=== PATIENT | female | born 1950 | race African-American/Black ===

== ENCOUNTER → 2018-01-27 | Outpatient (CLI) | payer OTHER ==
[2017-04-19 12:07] VITALS: BP 104/60
[~2018-01-27] MED LIST: ACET500T68 PO; AMLO10TA6 PO; CELE200C PO; CELE400C PO; DOCU-109 PO; FERR325T14 PO; FLUO40CA2 PO; FURO-68 PO; FURO40TA4 PO; HYDR-2145 PO; NAPR220T70 PO; OLME20TA17 PO; OXYC1TAB22 PO; OXYC30TA3 PO; PANT20TA2 PO; POTA20TA4 PO; PROAIR HFA8.5 GM IH; TRAM50TA PO; TRAZ-86 PO; VARE1TAB21 PO; WARF-31 PO
--- NOTE | 2018-01-27 17:31 | PAIN ---
DATE OF SERVICE: 01/27/2018 INITIAL CONSULTATION FOR PAIN CLINIC CHIEF COMPLAINT: Low back and left lower extremity pain. HISTORY OF PRESENT ILLNESS: The patient is a 67-year-old female who presents with history of pain for about 1 year in the low back and radiating to the left lower extremity, mostly in the posterior gluteus, posterior thigh, posterior calf muscles with some numbness and tingling in the toes. The patient reports it is not the result of any specific injury or accident that she is aware of. It came up gradually over time, it is becoming more constant now, a sharp stabbing pain in low back; tingling, numbness radiating to the left leg posteriorly as well as some anterior numbness on the left leg in the thigh. The patient reports it is waking her from sleep at night at least twice a night, does not affect her bowel or bladder control, but does affect her ability to walk significantly. She uses a cane, a walker or electric chair one she can get one at a store. The patient reports she has had physical therapy from July of this past year as well as exercises on her own and continues to do this with some improvement with both of these, but only very minimal. The patient reports she has tried tramadol, trazodone as well as [id number] Tylenol, which does help. The tramadol helps, but not for very long and the trazodone does not. The patient reports no side effects with any of those medications. The patient reports the pain is worse with walking, standing, changing positions, stooping or bending, especially on the left side and again sleeping is just disturbing her at night. The patient reports her disability rate from 0-10, 10 being the worst is an 8 with family and home responsibilities and social activity, 10 with recreation, 8 with self-care, 5 with sexual activity and 0 with life support activities. The patient did have an MRI scan of the lumbar spine, which shows anterolisthesis at L4 and L5, multiple facet hypertrophy and multiple bulging annulus neural foraminal encroachment L5-S1 with narrowing neural foramen and lateral recesses bilaterally at L4-L5, trace anterolisthesis L4 and L5, marked facet hypertrophy and circumferential bulging of the annulus with canal stenosis as well. PAST MEDICAL HISTORY: Significant for shortness of breath, hypertension, congestive heart failure, gastroesophageal reflux, cigarette smoking, arthritis, depression. PREVIOUS SURGERY: Include bilateral total knee arthroplasties, 2014 on the right, 2016 on the left; previous colon resection with colostomy in 1991 and hysterectomy in 2003. CURRENT MEDICATIONS: Include losartan, hydrochlorothiazide, Tylenol, trazodone, tramadol, fluoxetine and pantoprazole. ALLERGIES: The patient has no known drug allergies. FAMILY HISTORY: Significant for no major medical problems or conditions she is aware of, but her sister does have some spine issues she reports. SOCIAL HISTORY: Positive for cigarette smoking less than a pack a year for 10 years. Does not drink any alcohol. Does not use any illegal, illicit or recreational drugs. She is single and lives locally in [place], [place]. REVIEW OF SYSTEMS: The patient's review of systems is positive for those items mentioned in history of present illness. All systems reviewed and otherwise negative. It is complete, full and well documented on the patient's chart. PHYSICAL EXAMINATION: VITAL SIGNS: The patient blood pressure is 172/113, pulse 96, respirations 18, temperature is 99.0 degrees Fahrenheit, height is 5 feet 6 inches, weight is 316 pounds. GENERAL: The patient is awake, alert, oriented, appropriate, very pleasant demeanor. HEENT: Head is normocephalic, atraumatic. Extraocular movements are intact and symmetrical. Oral cavity: Mucous membranes moist and pink. Dentition is intact. NECK: Shows anterior throat supple without palpable lymphadenopathy noted. Swallow reflex symmetrical. CHEST: Shows normal on inspection. Breath sounds clear to auscultation bilaterally. HEART: Shows S1, S2 clear. No murmurs auscultated. ABDOMEN: Soft, nontender, nondistended. No palpable organomegaly is noted. No rebound or guarding demonstrated. BACK: Shows spine grossly in the midline. Normal-appearing thoracic kyphosis and some slight flattening of lumbar lordotic curvature. Lumbar paraspinous muscle shows symmetrical on inspection. On palpation, it shows some moderate tenderness diffusely throughout the upper and lower distribution of paraspinous muscles, but only diffusely without significant radiation. The patient's spine shows no tenderness with the spinous processes, palpation of the sacrum or sacroiliac regions. The patient has good rotational motion of lumbar spine, both laterally as well as extension and flexion without significant pain reported. EXTREMITIES: Lower extremities show deep tendon reflexes at 1+ in the patellar and tendo calcaneus tendons are equal. Motor exam is approximately 4 on a scale of 5 on the left and 5/5 on the right with dorsiflexion, extension, quadriceps and hamstring flexion, 4/5 left, 5/5 right as well. The patient's lower extremities are equal in color and appearance. Warm and dry to touch. Peripheral pulses are 1+ posterior tibial. No peripheral edema is noted. No clubbing or cyanosis. The patient's straight leg raise is noted to be positive mildly on the left at approximately 40 degrees with decreased pain with knee flexion. Right side is negative. Gaenslen's and Lyle's maneuvers are negative bilaterally as well. The patient is able to stand, stand on her toes without significant difficulty or loss of balance, walks with a slight shuffling gait, does appear to favor the left lower extremity slightly. Not using any assistive devices on her visit today. SKIN: Warm and dry, good turgor. No edema. No sores, rashes or bruising. IMPRESSION: This is a 67-year-old female with: 1. Approximately 1-year history of increasing pain, low back, left lower extremity in a radicular fashion following an L5-S1 dermatomal distribution. 2. MRI scan of lumbar spine as noted. 3. Hypertension. 4. Arthritis. 5. Gastroesophageal reflux. 6. Obesity. 7. Cigarette smoking. PLAN: Options were discussed with the patient including conservative medical management, physical therapy, interventional techniques. She would like to pursue interventional techniques. We discussed a lumbar epidural steroid injection using description as well as anatomical models to describe the procedure. The patient will wait for preauthorization with her insurance provider and would like to proceed. The patient will continue to do her exercises as she has been doing in the meantime, stretching and strengthening as well and once preauthorization has been obtained, we will have her return for lumbar epidural steroid injection at that time. Also I gave Medrol Dosepak in the meantime. The patient was given instructions as well as side effects to be aware of with medication and will follow up as scheduled. HARINDER BOBBY MD DR: ANN/shayy JOB#: [id number] / [id number]
== END | disposition home or self-care (01) ==
LOC: PNCL 10:36
PROVIDERS: ATTEND Anesthesiology
DX: M79.605 Pain in left leg (principal); M54.5 Low back pain; K21.9 Gastro-esophageal reflux disease without esophagitis; I11.0 Hypertensive heart disease with heart failure; I50.9 Heart failure, unspecified; M19.90 Unspecified osteoarthritis, unspecified site; E66.9 Obesity, unspecified; Z87.891 Personal history of nicotine dependence; Z90.710 Acquired absence of both cervix and uterus
CPT/HCPCS: G0463

== ENCOUNTER → 2018-02-26 | Outpatient (CLI) | payer OTHER ==
[2017-04-19 12:07] VITALS: BP 104/60
[~2018-02-26] MED LIST changes: +ALBU2.5V8 IH; +IOHEXOL 180 MG/ML 10 ML VIAL. ONE; -PROAIR HFA8.5 GM IH; +methylPREDNISolone ACETATE 40 MG/ML VIAL. ONE; +methylPREDNISolone ACETATE 80 MG/ML VIAL. ONE
--- NOTE | 2018-02-26 14:28 | PAIN ---
DATE OF SERVICE: 02/26/2018 PROGRESS NOTE FOR PAIN CLINIC DIAGNOSES: Lumbar radiculopathy with lumbar degenerative disk disease. HISTORY OF PRESENT ILLNESS: The patient is a 67-year-old female who returns for followup status post initial evaluation and preauthorization for lumbar epidural steroid injection. The patient has obtained that now and likes to proceed. She reports pain in the low back, left lower extremity, posterior gluteus, posterior thigh, posterior calf, essentially unchanged. The patient reported it as 9 on a scale of 10 at its worst and average and 8 at its least and is an 8 today. The patient reports it is aching, shooting, stabbing, constant, radiating, worse with walking, standing, changing positions, better with sitting or lying down. It does awakening her from sleep occasionally, not every night. The patient reports no new motor or sensory deficits, no new bowel or bladder incontinence or other complaints. PHYSICAL EXAMINATION: VITAL SIGNS: The patient's blood pressure 175/101, pulse 101, respirations 18, temperature 98.7 degrees Fahrenheit. Height is 5 feet 6 inches, weight is 328 pounds. GENERAL: The patient is awake, alert, oriented, appropriate and very pleasant demeanor. HEENT: Head shows normocephalic, atraumatic. Extraocular movements are intact and symmetrical. Oral cavity: Mucous membranes moist and pink. Dentition is intact. NECK: Shows anterior throat supple without palpable lymphadenopathy noted. Swallow reflex symmetrical. CHEST: Shows normal on inspection. Breath sounds are clear to auscultation bilaterally. HEART: Shows S1, S2 clear. No murmurs auscultated. ABDOMEN: Soft, nontender, nondistended. No palpable organomegaly is noted. No rebound or guarding demonstrated. BACK: Shows spine grossly in the midline. Normal appearing thoracic kyphosis and minor flattening of lumbar lordotic curvature. Lumbar paraspinous muscle shows symmetrical on inspection and on palpation shows some moderate tenderness diffusely bilaterally, but only diffusely without radiation. EXTREMITIES: The patient's lower extremities show deep tendon reflexes at 1+ in the patellar and tendo-calcaneus tendons. Motor exam is strong with 5/5 dorsiflexion, extension on the right and 4/5 on the left. The patient's peripheral pulses are 1+ posterior tibia. No peripheral edema is noted bilaterally. PLAN: Options were discussed with the patient. The patient's old chart was reviewed as well as her current medication regimen updated. Current review of systems updated today as well. We will proceed with a first in this series of lumbar epidural steroid injection today with fluoroscopic guidance. Risks were again discussed including, but not limited to bleeding, infection, possibility of epidural hematoma, subsequent neurological compromise, dural puncture, headaches, spinal cord and/or nerve damage, side effects of steroid medication and poor results regarding pain control. The patient understands and wished to proceed. The patient to return to clinic in approximately 2 weeks for followup, was counseled on return appointment, activity level and side effects to be aware of. DIAGNOSES: Lumbar radiculopathy with lumbar degenerative disk disease. PROCEDURE: Lumbar epidural steroid injection, translaminar approach L5-S1 level using C-arm fluoroscopic guidance under sterile prep and drape using local anesthetic. MEDICATION INJECTED: A total of 120 mg Depo-Medrol plus 10 mL of preservative-free normal saline and 2 mL of Isovue for contrast. CONDITION AT DISCHARGE: Stable. The patient tolerated procedure well, had no complications. HARINDER BOBBY MD DR: ANN/shayy JOB#: [id number] / [id number]
== END | disposition home or self-care (01) ==
LOC: PNCL 09:36
PROVIDERS: ATTEND Anesthesiology
DX: M51.16 Intervertebral disc disorders with radiculopathy, lumbar region (principal); Z79.899 Other long term (current) drug therapy
CPT/HCPCS: 62323; J1030; J1040; Q9965

== ENCOUNTER → 2018-03-12 | Outpatient (CLI) | payer OTHER ==
[2017-04-19 12:07] VITALS: BP 104/60
--- NOTE | 2018-03-12 11:55 | PAIN ---
DATE OF SERVICE: 03/12/2018 PROGRESS NOTE FOR PAIN CLINIC DIAGNOSIS: Lumbar radiculopathy with lumbar degenerative disk disease. HISTORY OF PRESENT ILLNESS: The patient is a 67-year-old female who returns for followup status post lumbar epidural steroid injection x 1. The patient reports about 50% improvement after the injection, still with some pain in the low back and left lower extremity, posterior gluteus, posterior thigh, posterior calf. The patient reports it is worse with walking, standing, changing positions but much better. She was increasing her activity, walking and doing household activities with greater ease and comfort and traveling with greater comfort for the first few weeks after the injection. The patient reports the pain is returning now fairly significantly in the low back and left leg as described. Described as sharp, dull, shooting, stabbing and becoming more constant, more noticeable, awakens her from sleep very infrequently however. The patient reports it is better with sitting or lying down. The patient rates her pain as a 9 on a scale of 10 at its worst, 8 on average, 8 at its least and is an 8 today. The patient reports no new motor or sensory deficits and no new bowel or bladder incontinence or other complaints. PHYSICAL EXAMINATION: VITAL SIGNS: The patient's blood pressure 158/98, pulse 71, respirations are 18 and temperature 98.9 degrees Fahrenheit. Weight is 329 pounds. GENERAL: The patient is awake, alert, oriented, appropriate and very pleasant demeanor. HEENT: Head shows normocephalic and atraumatic. Extraocular movements are intact and symmetrical. Oral cavity: Mucous membranes moist and pink. Dentition is intact. NECK: Shows anterior throat supple without palpable lymphadenopathy noted. Swallow reflex symmetrical. CHEST: Shows normal on inspection. Breath sounds clear to auscultation bilaterally. HEART: Shows S1 and S2 clear. No murmurs are auscultated. ABDOMEN: Soft, nontender and nondistended. No palpable organomegaly is noted. No rebound or guarding demonstrated. BACK: Shows spine grossly in the midline. Normal-appearing thoracic kyphosis and lumbar lordotic curvature. Lumbar paraspinous muscle shows symmetrical on inspection, on palpation shows some moderate tenderness, but only diffusely in the low lumbar distribution bilaterally without significant radiation. The patient has good rotational motion of the lumbar spine, both laterally as well as extension and flexion without difficulty. EXTREMITIES: The patient's lower extremities show deep tendon reflexes at 1+ in the patellar and tendo-calcaneus tendons are equal. Motor exam is approximately 4 on a scale of 5 on the left and 5/5 on the right with dorsiflexion and extension. Peripheral pulses are 1+ posterior tibia. No peripheral edema is noted bilaterally. Options were discussed with the patient. The patient's old chart was reviewed as well as her current medication regimen updated. Current review of systems updated today as well. We will proceed with the second in a series of lumbar epidural steroid injection today with fluoroscopic guidance. Risks were again discussed including, but not limited to bleeding, infection, possibility of epidural hematoma, subsequent neurological compromise, dural puncture, headaches, spinal cord and/or nerve damage, side effects of steroid medication and poor judgment pain control. The patient understands and wished to proceed. The patient will return to the clinic in approximately 2 weeks for followup, was counseled as to return appointment, activity level and side effects to be aware of. DIAGNOSIS: Lumbar radiculopathy with lumbar degenerative disk disease. PROCEDURES: Lumbar epidural steroid injection, translaminar approach, L5-S1 level using C-arm fluoroscopic guidance under sterile prep and drape using local anesthetic. MEDICATION INJECTED: A total of 120 mg Depo-Medrol plus 10 mL of preservative-free normal saline and 2 mL of Isovue for contrast. CONDITION AT DISCHARGE: Stable. The patient tolerated procedure well and had no complications. HARINDER BOBBY MD DR: ANN/shayy JOB#: [id number] / [id number]
== END | disposition home or self-care (01) ==
LOC: PNCL 09:32
PROVIDERS: ATTEND Anesthesiology
DX: M51.16 Intervertebral disc disorders with radiculopathy, lumbar region (principal); M79.662 Pain in left lower leg; Z98.890 Other specified postprocedural states
CPT/HCPCS: 62323; J1030; J1040; Q9965

== ENCOUNTER → 2018-03-30 | Outpatient (CLI) | payer OTHER ==
[2017-04-19 12:07] VITALS: BP 104/60
[~2018-03-30] MED LIST changes: -AMLO10TA6 PO; +AMLO10TA8 PO; -IOHEXOL 180 MG/ML 10 ML VIAL. ONE; -methylPREDNISolone ACETATE 40 MG/ML VIAL. ONE; -methylPREDNISolone ACETATE 80 MG/ML VIAL. ONE
--- NOTE | 2018-03-30 13:23 | PAIN ---
DATE OF SERVICE: 03/30/2018 DIAGNOSIS: Lumbar radiculopathy with lumbar degenerative disk disease. HISTORY OF PRESENT ILLNESS: The patient is a 67-year-old female who returns for followup status post lumbar epidural steroid injection x 2. The patient reports only about 50% improvement for the first day or two and again pain returned basically to its baseline in the low back with some radiation to the left lower extremity. The patient reports tingling, cramping, aching, sharp, becoming more constant, worse with activity, standing, walking, better with sitting or lying down, but does awaken her from sleep about every 2-4 hours. The patient has to reposition and get back to sleep. The patient reports she was increasing her distance walking and activities at home for the first day or two but after that the pain came right back. The patient reports no new motor or sensory deficits. Reports her pain is 8 on a scale of 10 at its worst and average, 7 at its least and is an 8 today. No new bowel or bladder incontinence. PHYSICAL EXAMINATION: VITAL SIGNS: The patient's blood pressure is 206/83, pulse 91, respirations are 18, temperature 99.6 degrees Fahrenheit, height is 5 feet 6 inches, weight is 333 pounds. GENERAL: The patient is awake, alert, oriented, appropriate, very pleasant demeanor. HEENT: Head normocephalic, atraumatic. Extraocular muscles are intact and symmetrical. Oral cavity: Mucous membranes moist and pink. Dentition is intact. NECK: Shows anterior throat supple without palpable lymphadenopathy noted. Swallow reflex symmetrical. CHEST: Shows normal on inspection. Breath sounds clear to auscultation bilaterally. HEART: Shows S1, S2 clear. No murmurs auscultated. ABDOMEN: Soft, nontender, nondistended. No palpable organomegaly is noted. No rebound or guarding demonstrated. BACK: The patient's back shows spine grossly in the midline, slight exaggerated thoracic kyphosis, mild flattening of lumbar lordotic curvature. Lumbar paraspinous muscle shows symmetrical on inspection. With palpation shows some minor tenderness, but only diffusely with palpation in the middle and lower distribution of paraspinous muscles without radiation, without trigger points. EXTREMITIES: The patient's lower extremities show deep tendon reflexes 1+ in the patellar and tendo-calcaneus tendons. Motor exam is approximately 4 on a scale of 5 on left with dorsiflexion and extension, 5/5 on the right. Peripheral pulses are 1+ posterior tibia. No peripheral edema is noted bilaterally. Options were discussed with the patient. The patient's old chart was reviewed as her current medication regimen updated. Current review of systems updated today as well. We will hold on any further injections by her choice. The patient will return to physical therapy. We had reordered some therapy for her today as well as she did feel this was somewhat beneficial and would like to try this again. We discussed some water therapy as well. The patient would like to hold on this and wait until the regular physical therapy is completed to see if she may be interested in this as well. The patient will follow up at this time on as-needed basis. We will make arrangements for physical therapy to begin once again and the patient will follow up once this is completed. HARINDER BOBBY MD DR: ANN/shayy JOB#: [id number] / [id number]
== END | disposition home or self-care (01) ==
LOC: PNCL 11:35
PROVIDERS: ATTEND Anesthesiology
DX: M51.16 Intervertebral disc disorders with radiculopathy, lumbar region (principal)
CPT/HCPCS: G0463

== ENCOUNTER 2018-10-25 14:32 | Inpatient (IN) | payer OTHER, MEDICAID ==
[~2018-10-25] VITALS: Ht 167.6 cm; Wt 155.8 kg
[2018-10-25] MEDS ORDERED: ALBUTEROL SULFATE 2.5 MG/3 ML NEBU. NEB ONE (14:45)
[2018-10-25] MEDS ORDERED: ASPIRIN 325 MG TABLET PO ONE (14:45)
--- NOTE | 2018-10-25 14:57 | PHYS DOC ---
Past Medical History Past Medical History: CHF, Constipation, Depression, GERD, Hypertension Additional Past Medical Histor: BOWEL OBSTRUCTION, COLOSTOMY, OBESITY, chronic knee pain Past Surgical History: Cholecystectomy, Hysterectomy, Knee Replacement, Other Additional Past Surgical Histo: bowel resection, right knee, Alcohol Use: None Drug Use: None Adult General Chief Complaint Chief Complaint: SHORTNESS OF BREATH HPI HPI Patient is a 67 year old female who presents with shortness of breath or last week. Patient states over the weekend has gotten worse. Patient states that she was having upper mid back pain and she took a baclofen of which stopped the back pain. Patient states the shortness of air has continued. Patient denies any chest pain or any pain at this time. Patient states that she is just very short of breath and nothing makes it better or worse. Patient states she is a smoker never been diagnosed as COPD or asthma. Review of Systems Review of Systems Constitutional: Denies fever or chills [] Eyes: Denies change in visual acuity, redness, or eye pain [] HENT: Denies nasal congestion or sore throat [] Respiratory: Denies cough. shortness of breath [] Cardiovascular:Denies GI: Denies abdominal pain, nausea, vomiting, bloody stools or diarrhea [] Musculoskeletal: Denies back pain or joint pain [] Integument: Denies rash or skin lesions [] Neurologic: Denies headache, focal weakness or sensory changes [] All other systems were reviewed and found to be within normal limits, except as documented in this note. Current Medications Current Medications Current Medications Medications (Trade) Dose Ordered Sig/Enzo Start Time Stop Time Status Last Admin Dose Admin Albuterol Sulfate (Ventolin Neb Soln) 2.5 mg 1X ONCE 10/25/18 14:45 10/25/18 14:48 DC 10/25/18 15:06 2.5 MG Aspirin (Rosita Aspirin) 325 mg 1X ONCE 10/25/18 14:45 10/25/18 14:48 DC 10/25/18 15:33 325 MG Allergies Allergies Allergies Coded Allergies Type Severity Reaction Last Updated Verified No Known Drug Allergies 06/17/13 No Physical Exam Physical Exam Constitutional: Well developed, well nourished, no acute distress, non-toxic appearance. [] Eyes: PERRLA, EOMI, conjunctiva normal, no discharge. [] Neck: Normal range of motion, no tenderness, supple, no stridor. [] Cardiovascular:Heart rate regular rhythm, no murmur [] Lungs & Thorax: Bilateral upper breath sounds clear to auscultation but lower are diminished[] Skin: Warm, dry, no erythema, no rash. [] Back: No tenderness, no CVA tenderness. [] Extremities: No tenderness, no cyanosis, no clubbing, ROM intact, Bilateral lower extremities 1+ edema. [] Neurologic: Alert and oriented X 3, normal motor function, normal sensory function, no focal deficits noted. [] Psychologic: Affect normal, judgement normal, mood normal. [] Current Patient Data Vital Signs Vital Signs Date Time Temp Pulse Resp B/P (MAP) Pulse Ox O2 Delivery O2 Flow Rate FiO2 10/25/18 15:08 96 Nasal Cannula 4.0 10/25/18 14:46 98.0 89 24 167/98 (121) 98.0 Lab Values Laboratory Tests Test 10/25/18 15:05 White Blood Count 5.7 x10^3/uL (4.0-11.0) Red Blood Count 4.12 x10^6/uL (3.50-5.40) Hemoglobin 8.6 g/dL (12.0-15.5) L Hematocrit 27.8 % (36.0-47.0) L Mean Corpuscular Volume 67 fL (79-100) L Mean Corpuscular Hemoglobin 21 pg (25-35) L Mean Corpuscular Hemoglobin Concent 31 g/dL (31-37) Red Cell Distribution Width 21.4 % (11.5-14.5) H Platelet Count 282 x10^3/uL (140-400) Neutrophils (%) (Auto) 71 % (31-73) Lymphocytes (%) (Auto) 14 % (24-48) L Monocytes (%) (Auto) 10 % (0-9) H Eosinophils (%) (Auto) 4 % (0-3) H Basophils (%) (Auto) 1 % (0-3) Neutrophils # (Auto) 4.1 x10^3/uL (1.8-7.7) Lymphocytes # (Auto) 0.8 x10^3/uL (1.0-4.8) L Monocytes # (Auto) 0.6 x10^3/uL (0.0-1.1) Eosinophils # (Auto) 0.2 x10^3/uL (0.0-0.7) Basophils # (Auto) 0.1 x10^3/uL (0.0-0.2) Platelet Estimate Adequate (ADEQUATE) Polychromasia Occasional Hypochromasia Marked Anisocytosis Mod Microcytosis Marked Macrocytosis Slight Sodium Level 142 mmol/L (136-145) Potassium Level 3.9 mmol/L (3.5-5.1) Chloride Level 106 mmol/L (98-107) Carbon Dioxide Level 29 mmol/L (21-32) Anion Gap 7 (6-14) Blood Urea Nitrogen 13 mg/dL (7-20) Creatinine 0.7 mg/dL (0.6-1.0) Estimated GFR (Cockcroft-Gault) 101.6 BUN/Creatinine Ratio 19 (6-20) Glucose Level 97 mg/dL (70-99) Calcium Level 9.2 mg/dL (8.5-10.1) Total Bilirubin 0.4 mg/dL (0.2-1.0) Aspartate Amino Transferase (AST) 29 U/L (15-37) Alanine Aminotransferase (ALT) 20 U/L (14-59) Alkaline Phosphatase 102 U/L (46-116) Troponin I Quantitative < 0.017 ng/mL (0.000-0.055) DG-Rep-N-Type Natriuretic Peptide 1000 pg/mL (0-124) H Total Protein 7.7 g/dL (6.4-8.2) Albumin 3.6 g/dL (3.4-5.0) Albumin/Globulin Ratio 0.9 (1.0-1.7) L Laboratory Tests 10/25/18 15:05 Laboratory Tests 10/25/18 15:05 EKG EKG Sinus Rhythm and no STEMI[] Interpretation Time: [address] Luke Radiology/Procedures Radiology/Procedures [] Impressions: [facility] [address] [place] [address] IMAGING REPORT Signed PATIENT: FARIDEH OVERTON ACCOUNT: [id number] : 1950 LOCATION: ER AGE: 67 SEX: F EXAM STATUS: REG ER ORD. PHYSICIAN: MARAH RODRIGUEZ APRN REASON: soa PROCEDURE: CHEST PA & LATERAL PA and lateral chest x-ray without comparison for shortness of air. FINDINGS: Heart size is enlarged. Central vascularity is increased. On the right, this appears to be augmented with mid and lower lung infiltrates which could reflect asymmetric pulmonary edema or infection. No definite pleural effusions. IMPRESSION: 1. Cardiomegaly and central vascular congestion concerning for congestive heart failure. 2. Asymmetric airspace infiltrates right greater than left. This may reflect asymmetrical alveolar edema however superimposed infectious infiltrates are also suspected. Electronically signed by: Atul Augustine MD (10/25/2018 3:45 PM) [facility] DICTATED and SIGNED BY: ATUL AUGUSTINE MD DATE: 10/25/18 1545 Course & Med Decision Making Course & Med Decision Making Patient is a 67 year old female who presents with shortness of breath or last week. Patient states over the weekend has gotten worse. Patient states that she was having upper mid back pain and she took a baclofen of which stopped the back pain. Patient states the shortness of air has continued. Patient denies any chest pain or any pain at this time. Patient states that she is just very short of breath and nothing makes it better or worse. Patient states she is a smoker never been diagnosed as COPD or asthma. Alert and oriented. Ambulatory with steady gait. Speaks in full clear sentences. Lungs are clear to upper lobes but diminished in lower lobes. Patient denies chest pain, nausea, vomiting, abdominal pain, fever, cough, recent illness, dizziness, syncope, headache, visual changes, numbness or tingling. Patient has 1+ lower extremity edema. Skin pink warm and dry. PERRLA. Patient has a history of CHF, hypertension, GERD, depression, colostomy, bowel obstruction. Patient does not wear oxygen normally and was 85% on room air. Patient is 93% on 3L. No calf pain with palpation. No pain with breathing. Chest xray shows 1. Cardiomegaly and central vascular congestion concerning for congestive heart failure. 2. Asymmetric airspace infiltrates right greater than left. This may reflect asymmetrical alveolar edema however superimposed infectious infiltrates are also suspected. I've spoken to Dr. maynard about the patient and the Patient is admitted by hospitalist for CHF exacerbation. Dragon Disclaimer Dragon Disclaimer This electronic medical record was generated, in whole or in part, using a voice recognition dictation system. The HEART Score for CP Pts HEART Score for Chest Pain: HEART Score for Chest Pain Response (Comments) Value History Moderately Suspicious 1 ECG Normal 0 Age > 65 2 Risk Factors >3 Risk Factors or Hx CAD 2 Troponin < Normal Limit 0 Total 5 Risk Factors: Risk Factors: DM, Current or recent (<one month) smoker, HTN, HLP, family history of CAD, obesity. Risk Scores: Score 0 - 3: 2.5% MACE over next 6 weeks - Discharge Home Score 4 - 6: 20.3% MACE over next 6 weeks - Admit for Clinical Observation Score 7 - 10: 72.7% MACE over next 6 weeks - Early Invasive Strategies Departure Departure Impression: Primary Impression: CHF exacerbation Disposition: ADMITTED INPATIENT Admitting Physician: DAISY Condition: STABLE Referrals: LUTHER AGUILA (PCP) Problem Qualifiers Primary Impression: CHF exacerbation Heart failure type: unspecified Qualified Codes: I50.9 - Heart failure, unspecified MARAH RODRIGUEZ ATLASSIAN ADMINISTRATOR Oct 25, 2018 14:57
[2018-10-25 15:17] LABS: BASO # 0.1 x10^3/uL (0.0-0.2); BASO % 1 % (0-3); EOS # 0.2 x10^3/uL (0.0-0.7); EOS % 4 % (0-3); HEMATOCRIT 27.8 % (36.0-47.0); HEMOGLOBIN 8.6 g/dL (12.0-15.5); LYMPH # 0.8 x10^3/uL (1.0-4.8); LYMPH % 14 % (24-48); MEAN CORPUSCULAR HEMOGLOBIN 21 pg (25-35); MEAN CORPUSCULAR HGB CONC 31 g/dL (31-37); MEAN CORPUSCULAR VOLUME 67 fL (79-100); MONO # 0.6 x10^3/uL (0.0-1.1); MONO % 10 % (0-9); NEUT # 4.1 x10^3/uL (1.8-7.7); NEUT % 71 % (31-73); PLATELET COUNT 282 x10^3/uL (140-400); RED BLOOD COUNT 4.12 x10^6/uL (3.50-5.40); RED CELL DISTRIBUTION WIDTH 21.4 % (11.5-14.5); WHITE BLOOD COUNT 5.7 x10^3/uL (4.0-11.0)
[2018-10-25 15:30] LABS: CALCIUM 9.2 mg/dL (8.5-10.1); CREATININE 0.7 mg/dL (0.6-1.0); GFR 101.6; POTASSIUM 3.9 mmol/L (3.5-5.1)
[2018-10-25 15:33] LABS: ALBUMIN 3.6 g/dL (3.4-5.0); ALBUMIN/GLOBULIN RATIO 0.9 (1.0-1.7); TOTAL BILIRUBIN 0.4 mg/dL (0.2-1.0); TOTAL PROTEIN 7.7 g/dL (6.4-8.2)
[2018-10-25 15:36] LABS: ANISOCYTOSIS MOD; HYPOCHROMIA MARKED; MICROCYTOSIS MARKED; PLT ESTIMATE ADEQUATE (ADEQUATE); POLYCHROMASIA OCCASIONAL
--- NOTE | 2018-10-25 15:47 | RAD ---
PA and lateral chest x-ray without comparison for shortness of air. FINDINGS: Heart size is enlarged. Central vascularity is increased. On the right, this appears to be augmented with mid and lower lung infiltrates which could reflect asymmetric pulmonary edema or infection. No definite pleural effusions. IMPRESSION: 1. Cardiomegaly and central vascular congestion concerning for congestive heart failure. 2. Asymmetric airspace infiltrates right greater than left. This may reflect asymmetrical alveolar edema however superimposed infectious infiltrates are also suspected. Electronically signed by: Atul Toledo MD (10/25/2018 3:45 PM) [facility]
[2018-10-25] MEDS ORDERED: ACETAMINOPHEN 325 MG TABLET. PO PRN (16:15)
[2018-10-25] MEDS ORDERED: fentaNYL PF VIAL 100 MCG/2 ML VIAL IV PRN (16:15)
[2018-10-25] MEDS ORDERED: ONDANSETRON PF 4 MG/2 ML VIAL. IV PRN (16:15)
[2018-10-25] MEDS ORDERED: FUROSEMIDE 40 MG/4 ML VIAL. IVP ONE (17:00)
[2018-10-25 17:15] VITALS: BP 184/90
[2018-10-25] MEDS: FLUoxetine HCL 20 MG CAPSULE PO SCH (18:29)
[2018-10-25] MEDS: PANTOPRAZOLE 40 MG TABLET.DR. PO SCH (18:30)
[2018-10-25] MEDS ORDERED: FURO-69 PO (19:07)
[2018-10-25] MEDS ORDERED: BACL10TA PO (19:07)
[2018-10-25] MEDS ORDERED: GABA300C18 PO (19:07)
[2018-10-25] MEDS ORDERED: LOSA1TAB19 PO (19:07)
[2018-10-25 19:37] VITALS: BP 171/84
--- NOTE | 2018-10-25 20:00 | NUR ---
Pt in bed assessment completed vss poc explained,pt denies pain at this time will resume care and continue to monitor pt. Call light in reach.
[2018-10-25] MEDS: traZODone 50 MG TABLET. PO SCH (21:33)
[2018-10-25] MEDS: ACETAMINOPHEN 500 MG TABLET PO SCH (21:34)
--- NOTE | 2018-10-25 21:37 | PDOC1 ---
History and Physical Date of Admission Date of Admission DATE: 10/25/18 TIME: 21:30 Source Source: Chart review, Patient History of Present Illness History of Present Illness Ms. Ariza is a 67 year old female admit with worsening dyspnea for a week. 2 days she has not been able to sleep, snd she has been having upper mid back pain and she took a baclofen of which stopped the back pain. dyspnea at rest adn exertion, possible new LE edema. Patient denies any chest pain or any pain at this time. Patient states that she is just very short of breath and nothing makes it better or worse. Patient states she is a smoker never been diagnosed as COPD or asthma. Past Medical History Cardiovascular: CHF, HTN, Hyperlipidemia Pulmonary: COPD CENTRAL NERVOUS SYSTEM: Other GI: Other Heme/Onc: No pertinent hx Hepatobiliary: No pertinent hx Psych: No pertinent hx Musculoskeletal: Osteoarthritis, Other Rheumatologic: No pertinent hx Infectious disease: No pertinent hx Renal/: Urinary Incontinence Endocrine: No pertinent hx Past Surgical History Past Surgical History: Total knee replacement, Hysterectomy, Other Family History Family History: Hypertension Family History: Parent Social History Smoke: No ALCOHOL: none Drugs: None Current Problem List Problem List Problems Medical Problems: (1) CHF exacerbation Status: Acute Current Medications Current Medications Current Medications Aspirin (Rosita Aspirin) 325 mg 1X ONCE PO Last administered on 10/25/18at 15:33; Start 10/25/18 at 14:45; Stop 10/25/18 at 14:48; Status DC Albuterol Sulfate (Ventolin Neb Soln) 2.5 mg 1X ONCE NEB Last administered on 10/25/18at 15:06; Start 10/25/18 at 14:45; Stop 10/25/18 at 14:48; Status DC Ondansetron HCl (Zofran) 4 mg PRN Q8HRS PRN IV NAUSEA/VOMITING; Start 10/25/18 at 16:15; Stop 10/26/18 at 16:14 Fentanyl Citrate (Fentanyl 2ml Vial) 50 mcg PRN Q1HR PRN IV PAIN; Start 10/25/18 at 16:15; Stop 10/26/18 at 16:14 Acetaminophen (Tylenol) 650 mg PRN Q4HRS PRN PO FEVER; Start 10/25/18 at 16:15; Stop 10/26/18 at 16:14 Furosemide (Lasix) 40 mg 1X ONCE IVP Last administered on 10/25/18at 17:07; Start 10/25/18 at 17:00; Stop 10/25/18 at 17:01; Status DC Acetaminophen (Tylenol) 500 mg BID PO ; Start 10/25/18 at 21:00 Tramadol HCl (Ultram) 100 mg PRN Q6HRS PRN PO PAIN; Start 10/25/18 at 17:15 Trazodone HCl (Desyrel) 150 mg HS PO ; Start 10/25/18 at 21:00 Fluoxetine HCl (PROzac) 40 mg DAILY08 PO Last administered on 10/25/18at 18:31; Start 10/25/18 at 17:30 Pantoprazole Sodium (Protonix) 40 mg DAILYAC PO Last administered on 10/25/18at 18:31; Start 10/25/18 at 17:30 Active Scripts Active Reported Gabapentin 300 Mg Capsule 300 Mg PO HS Baclofen 10 Mg Tablet 1 Tab PO DAILY Lasix (Furosemide) 20 Mg Tablet 1 Tab PO DAILY Losartan-Hctz 50-12.5 Mg Tab (Losartan/Hydrochlorothiazide) 1 Each Tablet 1 Tab PO DAILY Acetaminophen 500 Mg Tablet 1 Tab PO BID Protonix (Pantoprazole Sodium) 20 Mg Tablet.dr 40 Mg PO DAILY Trazodone Hcl 100 Mg Tablet 150 Mg PO HS Fluoxetine Hcl 40 Mg Capsule 40 Mg PO DAILY08 Tramadol Hcl 50 Mg Tablet 100 Mg PO PRN Q6HRS Allergies Allergies: Coded Allergies: No Known Drug Allergies (Unverified , 06/17/13) ROS General: YES: Fatigue, Malaise PSYCHOLOGICAL ROS: YES: Sleep disturbances; No: Anxiety, Behavioral Disorder, Concentration difficultie, Decreased libido, Depression, Disorientation, Hallucinations, Hostility, Irritablity, Memory difficulties, Mood Swings, Obsessive thoughts, Physical abuse, Sexual abuse, Suicidal ideation, Other Eyes: No Blurry vision, No Decreased vision, No Double vision, No Dry eyes, No Excessive tearing, No Eye Pain, No Itchy Eyes, No Loss of vision, No Photophobia, No Scotomata, No Uses contacts, No Uses glasses, No Other Respiratory: YES: Shortness of breath, SOB with excertion, Tachypnea; No: Cough, Hemoptysis, Orthopnea, Sputum Changes, Stridor, Wheezing, Other Cardiovascular: yes Edema; No Chest Pain, No Palpitations, No Orthopnea, No Paroxysmal Noc. Dyspnea, No Lt Headedness, No Other Gastrointestinal: No Nausea, No Vomiting, No Abdominal Pain, No Diarrhea, No Constipation, No Melena, No Hematochezia, No Other Genitourinary: No Dysuria, No Frequency, No Incontinence, No Hematuria, No Retention, No Discharge, No Urgency, No Pain, No Flank Pain, No Other, No , No , No , No , No , No , No Musculoskeletal: Yes Joint Pain, Yes Joint Stiffness; No Gait Disturbance, No Joint Swelling, No Muscle Pain, No Muscular Weakness, No Pain In:, No Swelling In:, No Other Neurological: No Behavorial Changes, No Bowel/Bladder ControlChng, No Confusion, No Dizziness, No Gait Disturbance, No Headaches, No Impaired Coord/balance, No Memory Loss, No Numbness/Tingling, No Seizures, No Speech Problems, No Tremors, No Visual Changes, No Weakness, No Other Skin: No Dry Skin, No Eczema, No Hair Changes, No Lumps, No Mole Changes, No Mottling, No Nail Changes, No Pruritus, No Rash, No Skin Lesion Changes, No Other, No Acne Physical Exam General: Alert, Oriented X3, Cooperative, No acute distress, mild distress HEENT: Atraumatic, EOMI, Mucous membr. moist/pink Lungs: Clear to auscultation, Other (distant due to habitus) Heart: S1S2, irregularly irregular, other (distant due to size) Abdomen: Normal bowel sounds (very obese), Soft Extremities: No clubbing, Other (1+ edema) Skin: No rashes Neuro: Normal speech, Sensation intact Psych/Mental Status: Mental status NL Vitals Vitals Vital Signs Date Time Temp Pulse Resp B/P (MAP) Pulse Ox O2 Delivery O2 Flow Rate FiO2 10/25/18 19:37 97.8 73 18 171/84 (113) 95 Nasal Cannula 2.0 97.8 Labs Labs Laboratory Tests Test 10/25/18 15:00 10/25/18 15:05 10/25/18 19:20 Lactic Acid Level 0.9 mmol/L (0.4-2.0) White Blood Count 5.7 x10^3/uL (4.0-11.0) Red Blood Count 4.12 x10^6/uL (3.50-5.40) Hemoglobin 8.6 g/dL (12.0-15.5) Hematocrit 27.8 % (36.0-47.0) Mean Corpuscular Volume 67 fL (79-100) Mean Corpuscular Hemoglobin 21 pg (25-35) Mean Corpuscular Hemoglobin Concent 31 g/dL (31-37) Red Cell Distribution Width 21.4 % (11.5-14.5) Platelet Count 282 x10^3/uL (140-400) Neutrophils (%) (Auto) 71 % (31-73) Lymphocytes (%) (Auto) 14 % (24-48) Monocytes (%) (Auto) 10 % (0-9) Eosinophils (%) (Auto) 4 % (0-3) Basophils (%) (Auto) 1 % (0-3) Neutrophils # (Auto) 4.1 x10^3/uL (1.8-7.7) Lymphocytes # (Auto) 0.8 x10^3/uL (1.0-4.8) Monocytes # (Auto) 0.6 x10^3/uL (0.0-1.1) Eosinophils # (Auto) 0.2 x10^3/uL (0.0-0.7) Basophils # (Auto) 0.1 x10^3/uL (0.0-0.2) Platelet Estimate Adequate (ADEQUATE) Polychromasia Occasional Hypochromasia Marked Anisocytosis Mod Microcytosis Marked Macrocytosis Slight Sodium Level 142 mmol/L (136-145) Potassium Level 3.9 mmol/L (3.5-5.1) Chloride Level 106 mmol/L (98-107) Carbon Dioxide Level 29 mmol/L (21-32) Anion Gap 7 (6-14) Blood Urea Nitrogen 13 mg/dL (7-20) Creatinine 0.7 mg/dL (0.6-1.0) Estimated GFR (Cockcroft-Gault) 101.6 BUN/Creatinine Ratio 19 (6-20) Glucose Level 97 mg/dL (70-99) Calcium Level 9.2 mg/dL (8.5-10.1) Total Bilirubin 0.4 mg/dL (0.2-1.0) Aspartate Amino Transf (AST/SGOT) 29 U/L (15-37) Alanine Aminotransferase (ALT/SGPT) 20 U/L (14-59) Alkaline Phosphatase 102 U/L (46-116) Troponin I Quantitative < 0.017 ng/mL (0.000-0.055) < 0.017 ng/mL (0.000-0.055) VP-Dlc-G-Type Natriuretic Peptide 1000 pg/mL (0-124) Total Protein 7.7 g/dL (6.4-8.2) Albumin 3.6 g/dL (3.4-5.0) Albumin/Globulin Ratio 0.9 (1.0-1.7) Laboratory Tests Test 10/25/18 15:00 10/25/18 15:05 10/25/18 19:20 Lactic Acid Level 0.9 mmol/L (0.4-2.0) White Blood Count 5.7 x10^3/uL (4.0-11.0) Red Blood Count 4.12 x10^6/uL (3.50-5.40) Hemoglobin 8.6 g/dL (12.0-15.5) Hematocrit 27.8 % (36.0-47.0) Mean Corpuscular Volume 67 fL (79-100) Mean Corpuscular Hemoglobin 21 pg (25-35) Mean Corpuscular Hemoglobin Concent 31 g/dL (31-37) Red Cell Distribution Width 21.4 % (11.5-14.5) Platelet Count 282 x10^3/uL (140-400) Neutrophils (%) (Auto) 71 % (31-73) Lymphocytes (%) (Auto) 14 % (24-48) Monocytes (%) (Auto) 10 % (0-9) Eosinophils (%) (Auto) 4 % (0-3) Basophils (%) (Auto) 1 % (0-3) Neutrophils # (Auto) 4.1 x10^3/uL (1.8-7.7) Lymphocytes # (Auto) 0.8 x10^3/uL (1.0-4.8) Monocytes # (Auto) 0.6 x10^3/uL (0.0-1.1) Eosinophils # (Auto) 0.2 x10^3/uL (0.0-0.7) Basophils # (Auto) 0.1 x10^3/uL (0.0-0.2) Platelet Estimate Adequate (ADEQUATE) Polychromasia Occasional Hypochromasia Marked Anisocytosis Mod Microcytosis Marked Macrocytosis Slight Sodium Level 142 mmol/L (136-145) Potassium Level 3.9 mmol/L (3.5-5.1) Chloride Level 106 mmol/L (98-107) Carbon Dioxide Level 29 mmol/L (21-32) Anion Gap 7 (6-14) Blood Urea Nitrogen 13 mg/dL (7-20) Creatinine 0.7 mg/dL (0.6-1.0) Estimated GFR (Cockcroft-Gault) 101.6 BUN/Creatinine Ratio 19 (6-20) Glucose Level 97 mg/dL (70-99) Calcium Level 9.2 mg/dL (8.5-10.1) Total Bilirubin 0.4 mg/dL (0.2-1.0) Aspartate Amino Transf (AST/SGOT) 29 U/L (15-37) Alanine Aminotransferase (ALT/SGPT) 20 U/L (14-59) Alkaline Phosphatase 102 U/L (46-116) Troponin I Quantitative < 0.017 ng/mL (0.000-0.055) < 0.017 ng/mL (0.000-0.055) PB-Vae-V-Type Natriuretic Peptide 1000 pg/mL (0-124) Total Protein 7.7 g/dL (6.4-8.2) Albumin 3.6 g/dL (3.4-5.0) Albumin/Globulin Ratio 0.9 (1.0-1.7) VTE Prophylaxis Ordered VTE Prophylaxis Devices: No VTE Pharmacological Prophylaxi: Yes Assessment/Plan Assessment/Plan acute diastolic CHF exacerbation, IV lasix morbid obesity, BMI 47 poss secondary pulm htn depression, anxiety insomnia GERD anemia, poss iron def, check labs SHIREEN DIA MD Oct 25, 2018 21:37
[2018-10-25 22:21] VITALS: BP 130/68
[2018-10-25] MEDS: GABAPENTIN 300 MG CAPSULE. PO SCH (22:57)
[2018-10-26] VITALS (8 sets, daily range): BP systolic 130–198; BP diastolic 60–94
--- NOTE | 2018-10-26 05:31 | EKG ---
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
[2018-10-26] MEDS: PANTOPRAZOLE 40 MG TABLET.DR. PO SCH (06:22)
[2018-10-26 07:17] LABS: BASO % 1 % (0-3); EOS # 0.2 x10^3/uL (0.0-0.7); EOS % 6 % (0-3); HEMATOCRIT 27.8 % (36.0-47.0); HEMOGLOBIN 8.4 g/dL (12.0-15.5); LYMPH # 0.9 x10^3/uL (1.0-4.8); LYMPH % 22 % (24-48); MEAN CORPUSCULAR HEMOGLOBIN 20 pg (25-35); MEAN CORPUSCULAR HGB CONC 30 g/dL (31-37); MEAN CORPUSCULAR VOLUME 68 fL (79-100); MONO # 0.4 x10^3/uL (0.0-1.1); MONO % 10 % (0-9); NEUT # 2.5 x10^3/uL (1.8-7.7); NEUT % 61 % (31-73); RED BLOOD COUNT 4.09 x10^6/uL (3.50-5.40); RED CELL DISTRIBUTION WIDTH 21.1 % (11.5-14.5)
[2018-10-26 07:21] LABS: CALCIUM 8.9 mg/dL (8.5-10.1); CREATININE 0.8 mg/dL (0.6-1.0); GFR 87.1; POTASSIUM 4.1 mmol/L (3.5-5.1)
[2018-10-26 07:27] LABS: PLATELET COUNT 187 x10^3/uL (140-400)
[2018-10-26] MEDS: CYCLOBENZAPRINE 10 MG TABLET. PO SCH (07:46)
[2018-10-26] MEDS: FLUoxetine HCL 20 MG CAPSULE PO SCH (07:47)
[2018-10-26] MEDS: traMADol 50 MG TABLET PO PRN ×3 (07:51→20:28)
[2018-10-26 08:25] LABS: CHOLESTEROL/HDL RATIO 1.9
[2018-10-26] MEDS ORDERED: LOSARTAN POTASSIUM 50 MG TABLET. PO SCH (09:00)
[2018-10-26] MEDS ORDERED: hydroCHLOROthiazide 12.5 MG CAPSULE PO SCH (09:00)
[2018-10-26] MEDS ORDERED: FUROSEMIDE 20 MG TABLET PO SCH (09:00)
[2018-10-26] MEDS: ACETAMINOPHEN 500 MG TABLET PO SCH ×2 (09:00→20:28)
[2018-10-26] MEDS ORDERED: NON FORMULARY ITEM (Losartan/Hydrochlorothiazide (Losartan-Hctz 50-12.5 Mg Tab) 1 TAB) PO SCH (09:00)
--- NOTE | 2018-10-26 11:27 | CARD ---
MR#: [id number] Date of Study: 10/26/2018 Ordering Physician: SHIREEN DIA, Referring Physician: SHIREEN DIA Tech: Kirsten Kam RDCS APPROVED REPORT EXAM: Two-dimensional and M-mode echocardiogram with Doppler and color Doppler. Other Information Quality : Technically LimitedHR: 71bpm Rhythm : NSRTechnically limited study due to body habitus and smoking. INDICATION Congestive Heart Failure 2D DIMENSIONS RVDd3.4 (2.9-3.5cm)Left Atrium(2D)4.3 (1.6-4.0cm) IVSd1.8 (0.7-1.1cm)Aortic Root(2D)3.3 (2.0-3.7cm) LVDd5.3 (3.9-5.9cm)LVOT Diameter2.4 (1.8-2.4cm) PWd1.5 (0.7-1.1cm)LVDs3.9 (2.5-4.0cm) FS (%) 25.7 %SV67.7 ml LVEF(%)50.2 (>50%) M-Mode DIMENSIONS Left Atrium(MM)4.22 (2.5-4.0cm)Aortic Root3.51 (2.2-3.7cm) Aortic Valve AoV Peak Mj.119.8cm/sAoV VTI19.2cm AO Peak GR.5.7mmHgLVOT Peak Mj.86.5cm/s AO Mean GR.3mmHgAVA (VMAX)3.25cm2 OSWALD (VTI)3.00cm2 Mitral Valve MV E Fvnmrjco22.9cm/sMV DECEL [id number] MV A Ednmlofy05.8cm/sE/A Ratio0.8 Pulmonary Valve PV Peak Epnqorfa94.3cm/s Tricuspid Valve TR P. Naxuzreh304cz/sRAP [id number] TR Peak Gr.28obSoXZGQ93tzHp LEFT VENTRICLE The left ventricle is normal size. There is moderate concentric left ventricular hypertrophy. Left ve ntricle systolic function is normal. The Ejection Fraction is 55%. There is normal LV segmental wall motion. Transmitral Doppler flow pattern is Grade I-abnormal relaxation pattern. RIGHT VENTRICLE The right ventricle is normal size. There is normal right ventricular wall thickness. The right ventr icular systolic function is normal. ATRIA The left atrium is mildly dilated. The right atrium is mildly dilated. The interatrial septum is inta ct with no evidence for an atrial septal defect or patent foramen ovale as noted on 2-D or Doppler im aging. AORTIC VALVE The aortic valve is normal in structure and function. The aortic valve is trileaflet. Doppler and Col or Flow revealed no significant aortic regurgitation. There is no significant aortic valvular stenosi s. MITRAL VALVE The mitral valve is normal in structure and function. There is no evidence of mitral valve prolapse. There is no mitral valve stenosis. Doppler and Color-flow revealed trace mitral regurgitation. TRICUSPID VALVE The tricuspid valve is normal in structure and function. Doppler and Color Flow revealed trace tricus pid regurgitation. The PA pressure was estimated at 23 mmHg. There is no tricuspid valve prolapse or vegetation. There is no tricuspid valve stenosis. PULMONIC VALVE The pulmonic valve is not well visualized. GREAT VESSELS The aortic root is normal in size. The ascending aorta is normal in size. The IVC was not visualized. PERICARDIAL EFFUSION There is no evidence of significant pericardial effusion. Critical Notification Critical Value: No <Conclusion> Left ventricle systolic function is normal. The Ejection Fraction is 55%. There is normal LV segmental wall motion. Transmitral Doppler flow pattern is Grade I-abnormal relaxation pattern. Trace mitral regurgitation. Trace tricuspid regurgitation. The PA pressure was estimated at 23 mmHg. There is no evidence of significant pericardial effusion. Signed by : Srini Lowery, Electronically Approved : 10/26/2018 11:27:05
--- NOTE | 2018-10-26 11:44 | PDOC2 ---
CARDIAC CONSULT DATE OF CONSULT Date of Consult DATE: 10/26/18 TIME: 11:36 REASON FOR CONSULT Reason for Consult: CHF exacerbation REFERRING PHYSICIAN Referring Physician: Holly SOURCE Source: Chart review, Patient HISTORY OF PRESENT ILLNESS HISTORY OF PRESENT ILLNESS This is a 67 yo AA female who lives alone and has been having shortness of breath in the last 1.5 weeks. She has been having some producitve cough yell owish in color and her SOA has been progressive. she has been weaker. Denies any chest pain or palpitations. No reported fever or chills. No frequent dizziness. Positive for PND and orthopnea but no significant swelling by her comparison. Reports of wheezing as well. No hx of VTE, CAD or any arrhythmias. PAST MEDICAL HISTORY Past Medical History Cardiovascular: CHF, HTN, Hyperlipidemia, vasovagal syncope Pulmonary: COPD CENTRAL NERVOUS SYSTEM: Other GI: Other Heme/Onc: No pertinent hx Hepatobiliary: No pertinent hx Psych: No pertinent hx Musculoskeletal: Osteoarthritis, Other Rheumatologic: No pertinent hx Infectious disease: No pertinent hx Renal/: Urinary Incontinence Endocrine: No pertinent hx PAST SURGICAL HISTORY Past Surgical History Total knee replacement, Hysterectomy, bowel resection with colostomy FAMILY HISTORY Family History: Hypertension SOCIAL HISTORY Smoke: No ALCOHOL: none Drugs: None Lives: with Family CURRENT MEDICATIONS CURRENT MEDICATIONS Current Medications Medications (Trade) Dose Ordered Sig/Enzo Route PRN Reason Start Time Stop Time Status Last Admin Dose Admin Aspirin (Rosita Aspirin) 325 mg 1X ONCE PO 10/25/18 14:45 10/25/18 14:48 DC 10/25/18 15:33 Albuterol Sulfate (Ventolin Neb Soln) 2.5 mg 1X ONCE NEB 10/25/18 14:45 10/25/18 14:48 DC 10/25/18 15:06 Furosemide (Lasix) 40 mg 1X ONCE IVP 10/25/18 17:00 10/25/18 17:01 DC 10/25/18 17:07 Acetaminophen (Tylenol) 500 mg BID PO 10/25/18 21:00 10/25/18 21:34 Tramadol HCl (Ultram) 100 mg PRN Q6HRS PRN PO PAIN 10/25/18 17:15 10/26/18 07:51 Trazodone HCl (Desyrel) 150 mg HS PO 10/25/18 21:00 10/25/18 21:34 Fluoxetine HCl (PROzac) 40 mg DAILY08 PO 10/25/18 17:30 10/26/18 07:51 Pantoprazole Sodium (Protonix) 40 mg DAILYAC PO 10/25/18 17:30 10/26/18 06:22 Furosemide (Lasix) 20 mg DAILY PO 10/26/18 09:00 10/26/18 07:51 Gabapentin (Neurontin) 300 mg HS PO 10/25/18 22:15 10/25/18 22:57 Cyclobenzaprine HCl (Flexeril) 10 mg DAILY PO 10/26/18 09:00 10/26/18 07:51 Losartan Potassium (Cozaar) 50 mg DAILY PO 10/26/18 09:00 10/26/18 07:51 Hydrochlorothiazide (Microzide) 12.5 mg DAILY PO 10/26/18 09:00 10/26/18 07:51 ALLERGIES ALLERGIES: Coded Allergies: No Known Drug Allergies (Unverified , 06/17/13) ROS Review of System 14 point ROS evaluated with pertinent positives noted per HPI PHYSICAL EXAM General: Alert, Oriented X3, Cooperative, No acute distress HEENT: Atraumatic, Mucous membr. moist/pink Lungs: Other (diminished throughout) Heart: Regular rate (Sr), Other (distant heart sounds) Extremities: No cyanosis (E pitting edema) Neuro: Normal speech, Sensation intact Psych/Mental Status: Mood NL, Other (drowsy) MUSCULOSKELETAL: Osteoarthritic changes both hands VITALS/I&O VITALS/I&O: Vital Signs Date Time Temp Pulse Resp B/P (MAP) Pulse Ox O2 Delivery O2 Flow Rate FiO2 10/26/18 08:00 Nasal Cannula 2.0 10/26/18 07:51 72 166/106 10/26/18 07:00 98.2 20 91 98.2 I & O 10/25/18 10/25/18 10/26/18 15:00 23:00 07:00 Intake Total 200 ml 120 ml Output Total 600 ml 200 ml Balance -400 ml -80 ml LABS Lab: Laboratory Tests Test 10/25/18 15:00 10/25/18 15:05 10/25/18 19:20 10/26/18 06:00 Lactic Acid Level 0.9 mmol/L (0.4-2.0) White Blood Count 5.7 x10^3/uL (4.0-11.0) 4.0 x10^3/uL (4.0-11.0) Red Blood Count 4.12 x10^6/uL (3.50-5.40) 4.09 x10^6/uL (3.50-5.40) Hemoglobin 8.6 g/dL (12.0-15.5) L 8.4 g/dL (12.0-15.5) L Hematocrit 27.8 % (36.0-47.0) L 27.8 % (36.0-47.0) L Mean Corpuscular Volume 67 fL (79-100) L 68 fL (79-100) L Mean Corpuscular Hemoglobin 21 pg (25-35) L 20 pg (25-35) L Mean Corpuscular Hemoglobin Concent 31 g/dL (31-37) 30 g/dL (31-37) L Red Cell Distribution Width 21.4 % (11.5-14.5) H 21.1 % (11.5-14.5) H Platelet Count 282 x10^3/uL (140-400) 187 x10^3/uL (140-400) Neutrophils (%) (Auto) 71 % (31-73) 61 % (31-73) Lymphocytes (%) (Auto) 14 % (24-48) L 22 % (24-48) L Monocytes (%) (Auto) 10 % (0-9) H 10 % (0-9) H Eosinophils (%) (Auto) 4 % (0-3) H 6 % (0-3) H Basophils (%) (Auto) 1 % (0-3) 1 % (0-3) Neutrophils # (Auto) 4.1 x10^3/uL (1.8-7.7) 2.5 x10^3/uL (1.8-7.7) Lymphocytes # (Auto) 0.8 x10^3/uL (1.0-4.8) L 0.9 x10^3/uL (1.0-4.8) L Monocytes # (Auto) 0.6 x10^3/uL (0.0-1.1) 0.4 x10^3/uL (0.0-1.1) Eosinophils # (Auto) 0.2 x10^3/uL (0.0-0.7) 0.2 x10^3/uL (0.0-0.7) Basophils # (Auto) 0.1 x10^3/uL (0.0-0.2) 0.0 x10^3/uL (0.0-0.2) Platelet Estimate Adequate (ADEQUATE) Polychromasia Occasional Hypochromasia Marked Anisocytosis Mod Microcytosis Marked Macrocytosis Slight Sodium Level 142 mmol/L (136-145) 147 mmol/L (136-145) H Potassium Level 3.9 mmol/L (3.5-5.1) 4.1 mmol/L (3.5-5.1) Chloride Level 106 mmol/L (98-107) 109 mmol/L (98-107) H Carbon Dioxide Level 29 mmol/L (21-32) 32 mmol/L (21-32) Anion Gap 7 (6-14) 6 (6-14) Blood Urea Nitrogen 13 mg/dL (7-20) 12 mg/dL (7-20) Creatinine 0.7 mg/dL (0.6-1.0) 0.8 mg/dL (0.6-1.0) Estimated GFR (Cockcroft-Gault) 101.6 87.1 BUN/Creatinine Ratio 19 (6-20) Glucose Level 97 mg/dL (70-99) 99 mg/dL (70-99) Calcium Level 9.2 mg/dL (8.5-10.1) 8.9 mg/dL (8.5-10.1) Total Bilirubin 0.4 mg/dL (0.2-1.0) Aspartate Amino Transferase (AST) 29 U/L (15-37) Alanine Aminotransferase (ALT) 20 U/L (14-59) Alkaline Phosphatase 102 U/L (46-116) Troponin I Quantitative < 0.017 ng/mL (0.000-0.055) < 0.017 ng/mL (0.000-0.055) CD-Ion-N-Type Natriuretic Peptide 1000 pg/mL (0-124) H Total Protein 7.7 g/dL (6.4-8.2) Albumin 3.6 g/dL (3.4-5.0) Albumin/Globulin Ratio 0.9 (1.0-1.7) L Iron Level 22 ug/dL (50-170) L Total Iron Binding Capacity 361 ug/dL (250-450) Iron Saturation 6 % (15-34) L Triglycerides Level 33 mg/dL (0-150) Cholesterol Level 111 mg/dL (0-200) LDL Cholesterol, Calculated 45 mg/dL (0-100) VLDL Cholesterol, Calculated 7 mg/dL (0-40) Non-HDL Cholesterol Calculated 52 mg/dL (0-129) HDL Cholesterol 59 mg/dL (40-60) Cholesterol/HDL Ratio 1.9 Thyroid Stimulating Hormone (TSH) 0.408 uIU/mL (0.358-3.74) Laboratory Tests 10/25/18 15:05 10/26/18 06:00 Laboratory Tests 10/25/18 15:05 10/26/18 06:00 ECHOCARDIOGRAM ECHOCARDIOGRAM <Conclusion> Left ventricle systolic function is normal. The Ejection Fraction is 55%. There is normal LV segmental wall motion. Transmitral Doppler flow pattern is Grade I-abnormal relaxation pattern. Trace mitral regurgitation. Trace tricuspid regurgitation. The PA pressure was estimated at 23 mmHg. There is no evidence of significant pericardial effusion. DATE: 10/26/18914 ASSESSMENT/PLAN ASSESSMENT/PLAN 1. Acute on chronic diastolic CHF 2. Suspect AECOPD with continued tobaccoism 3. HTN urgency 4. Microcytic anemia: LEIDA. no known active bleed. defer to PCP 5. Mild coagulopathy 6. HLP Recommendations 1. Lasix therapy, albuterol. Continue with ARB. 2. Noncontrast CT chest, TTE, lipids and TSH 3. Smoking cessation 4. will need outpt JAY workup. CHASE CRAWFORD REGISTERED ROUTE ASSOCIATE Oct 26, 2018 11:44
[2018-10-26] MEDS ORDERED: ALBUTEROL SULFATE 2.5 MG/3 ML NEBU. NEB PRN (12:00)
[2018-10-26] MEDS ORDERED: FUROSEMIDE 40 MG/4 ML VIAL. IVP ONE (12:00)
--- NOTE | 2018-10-26 13:06 | NUR ---
SS following for discharge planning. SS reviewed pt chart. Pt is from home and is currently requiring oxygen. No discharge needs noted at this time. SS will continue to follow for discharge planning.
[2018-10-26 13:24] LABS: BASE EXCESS COOX 3 mmol/L (-3-3); HCO3 COOX 28 mmol/L (21-28); METHEMOGLOBIN 0.3 % (0.0-1.9); OXYHEMOGLOBIN 89.1 %; PCO2 COOX 46 mmHg (35-46); PO2 COOX 62 mmHg (65-108); SAT O2 COOX 91 % (92-99)
--- NOTE | 2018-10-26 16:51 | RAD ---
Examination: CT CHEST WO CONTRAST History: Dyspnea, COPD, CHF Comparison/Correlation: None Findings: Axial images of chest were obtained without contrast. Sagittal and coronal reformatted images were provided. Linear atelectasis at the left lung base is present. No suspicious infiltrates. No pulmonary nodules or masses. No pneumothorax. Tracheobronchial tree is unremarkable. No enlarged thoracic lymph nodes. Mild diffuse emphysematous involvement along schuster noted. Partially visualized upper abdomen is unremarkable. Degenerative disc space narrowing at multiple levels of the mid thoracic spine noted. Dextroconvex scoliosis of the thoracic spine is evident. Impression: No suspicious infiltrate. PQRS Compliance Statement: One or more of the following individualized dose reduction techniques were utilized for this examination: 1. Automated exposure control 2. Adjustment of the mA and/or kV according to patient size 3. Use of iterative reconstruction technique Electronically signed by: Jhony Moore MD (10/26/2018 4:47 PM) [facility]
[2018-10-26] MEDS: hydrALAZINE 20 MG/ML VIAL. IVP PRN ×2 (17:39→23:07)
--- NOTE | 2018-10-26 19:15 | NUR ---
Pt in bed assessment completed vs obtained bp 160/93 hydralizine given prior poc explained will resume care and continue to monitor pt. call light in reach.
[2018-10-26] MEDS: traZODone 50 MG TABLET. PO SCH (20:27)
[2018-10-26] MEDS: GABAPENTIN 300 MG CAPSULE. PO SCH (20:28)
[2018-10-26 20:40] LABS: BILIRUBIN,URINE NEGATIVE (NEG); CLARITY,URINE CLEAR; COLOR,URINE YELLOW; NITRITE,URINE NEGATIVE (NEG); PROTEIN,URINE NEGATIVE (NEG-TRACE)
[2018-10-26 20:44] LABS: SQUAMOUS EPITHELIAL CELL,UR FEW /LPF
[2018-10-26 20:45] LABS: BACTERIA,URINE 0 /HPF (0-FEW); RBC,URINE 0 /HPF (0-2)
[2018-10-27] VITALS (7 sets, daily range): BP systolic 154–208; BP diastolic 82–108
[2018-10-27] MEDS: PANTOPRAZOLE 40 MG TABLET.DR. PO SCH (06:19)
[2018-10-27 06:44] LABS: CALCIUM 8.9 mg/dL (8.5-10.1); CREATININE 0.9 mg/dL (0.6-1.0); MAGNESIUM 1.8 mg/dL (1.8-2.4); POTASSIUM 3.6 mmol/L (3.5-5.1)
[2018-10-27] MEDS: CYCLOBENZAPRINE 10 MG TABLET. PO SCH (07:55)
[2018-10-27] MEDS: FLUoxetine HCL 20 MG CAPSULE PO SCH (07:55)
[2018-10-27] MEDS: ACETAMINOPHEN 500 MG TABLET PO SCH ×2 (07:56→20:55)
[2018-10-27] MEDS: traMADol 50 MG TABLET PO PRN ×2 (07:56→18:59)
[2018-10-27] MEDS ORDERED: hydrALAZINE 20 MG/ML VIAL. IVP ONE (08:00)
[2018-10-27] MEDS ORDERED: POTASSIUM CHLORIDE 20 MEQ TABLET.ER. PO ONE (08:00)
[2018-10-27] MEDS: LOSARTAN POTASSIUM 50 MG TABLET. PO SCH (08:10)
[2018-10-27] MEDS ORDERED: FUROSEMIDE 40 MG/4 ML VIAL. IVP SCH (09:00)
--- NOTE | 2018-10-27 11:19 | PDOC ---
CARDIO Progress Notes Date and Time Date of Service 10/27/2018 Time of Evaluation 1050 Subjective Subjective: No Chest Pain, No shortness of breath, No Palpitations Vitals Vitals Vital Signs Date Time Temp Pulse Resp B/P (MAP) Pulse Ox O2 Delivery O2 Flow Rate FiO2 10/27/18 09:10 166/90 (115) 10/27/18 08:10 82 10/27/18 08:04 Nasal Cannula 2.0 10/27/18 07:47 99.0 18 94 99.0 Weight Weight [ ] Input and Output Intake and Output Intake and Output 10/27/18 07:00 Intake Total 1000 ml Output Total 1950 ml Balance -950 ml Intake Oral 1000 ml Output Urine Total 1950 ml # Voids 1 Laboratory Labs Laboratory Tests Test 10/26/18 13:20 10/26/18 20:24 10/27/18 06:05 O2 Saturation 91 % (92-99) Arterial Blood pH 7.40 (7.35-7.45) Arterial Blood pCO2 at Patient Temp 46 mmHg (35-46) Arterial Blood pO2 at Patient Temp 62 mmHg (65-108) Arterial Blood HCO3 28 mmol/L (21-28) Arterial Blood Base Excess 3 mmol/L (-3-3) Oxyhemoglobin 89.1 % Methemoglobin 0.3 % (0.0-1.9) Carbon Monoxide, Quantitative 1.6 % (0.0-1.9) FiO2 28 Urine Collection Type Unknown Urine Color Yellow Urine Clarity Clear Urine pH 7.0 Urine Specific [place] 1.010 Urine Protein Negative mg/dL (NEG-TRACE) Urine Glucose (UA) Negative mg/dL (NEG) Urine Ketones (Stick) Negative mg/dL (NEG) Urine Blood Negative (NEG) Urine Nitrite Negative (NEG) Urine Bilirubin Negative (NEG) Urine Urobilinogen Dipstick 1.0 mg/dL (0.2 mg/dL) Urine Leukocyte Esterase Moderate (NEG) Urine RBC 0 /HPF (0-2) Urine WBC 5-10 /HPF (0-4) Urine Squamous Epithelial Cells Few /LPF Urine Bacteria 0 /HPF (0-FEW) Sodium Level 144 mmol/L (136-145) Potassium Level 3.6 mmol/L (3.5-5.1) Chloride Level 105 mmol/L (98-107) Carbon Dioxide Level 30 mmol/L (21-32) Anion Gap 9 (6-14) Blood Urea Nitrogen 16 mg/dL (7-20) Creatinine 0.9 mg/dL (0.6-1.0) Estimated GFR (Cockcroft-Gault) 76.0 Glucose Level 117 mg/dL (70-99) Calcium Level 8.9 mg/dL (8.5-10.1) Magnesium Level 1.8 mg/dL (1.8-2.4) Microbiology Micro Microbiology 10/25/18 Blood Culture - Preliminary, Resulted NO GROWTH AFTER 1 DAY Physical Exam HEENT: Neck Supple W Full Motion Chest: Symmetric LUNGS: Other (diminished) Heart: RRR (SR), irregularly irregular, other (distant due to size) Abdomen: Soft N/T, Other (obese) Extremities: No Calf Tenderness, Other (1+ bilateral LE pitting edema) Neurology: alert, oriented, follow commands Assessment Assessment 1. Acute on chronic diastolic CHF: appears compensated 2. AECOPD with continued tobaccoism; defer to PCP 3. Hypertensive heart disease: BP remains labile 4. Microcytic anemia: LEIDA. no known active bleed. defer to PCP 5. Mild coagulopathy 6. HLP 7. PSVT Recommendations 1. DC lasix. Increase losartan and will start on chlorthalidone and add metoprolol. Start on compression stockings. 2. Smoking cessation 3. Outpt JAY workup pending 4. Monitor BP trend and will titrate UP BP meds per response. Hydralazine IV PRN 5. Follow up in office in 1 month CHASE CRAWFORD APRN Oct 27, 2018 11:19
[2018-10-27] MEDS: ASPIRIN ENTERIC COATED 81 MG TABLET.DR. PO SCH (12:06)
[2018-10-27] MEDS: METOPROLOL TART IMMED RELEASE 25 MG TABLET. PO SCH ×2 (12:06→20:56)
--- NOTE | 2018-10-27 13:35 | PDOC ---
[employer] PROGRESS NOTE Chief Complaint Chief Complaint Diastolic CHF COPD HTN GERD Microcytic Anemia Mild coagulopathy Paroxysmal supraventricular tachycardia History of Present Illness History of Present Illness 10/27/18 Pt seen and examined lying in bed in NAD DW RN Chart reviewed Vitals/I&O Vitals/I&O: Vital Signs Date Time Temp Pulse Resp B/P (MAP) Pulse Ox O2 Delivery O2 Flow Rate FiO2 10/27/18 12:07 75 180/82 10/27/18 11:20 98.5 20 97 Nasal Cannula 2.0 98.5 I & O 10/26/18 10/26/18 10/27/18 15:00 23:00 07:00 Intake Total 340 ml 240 ml 420 ml Output Total 750 ml 600 ml 600 ml Balance -410 ml -360 ml -180 ml Physical Exam General: Alert, Oriented X3, Cooperative, No acute distress Heart: Regular rate (Sr), Other (distant heart sounds) Lungs: Clear Abdomen: Normal bowel sounds (very obese), Soft Extremities: No cyanosis (E pitting edema) Skin: No rashes, Other (hyperpigmentation of skin on neck; hirsutism) Labs Labs: Laboratory Tests Test 10/26/18 20:24 10/27/18 06:05 Urine Collection Type Unknown Urine Color Yellow Urine Clarity Clear Urine pH 7.0 Urine Specific [place] 1.010 Urine Protein Negative mg/dL (NEG-TRACE) Urine Glucose (UA) Negative mg/dL (NEG) Urine Ketones (Stick) Negative mg/dL (NEG) Urine Blood Negative (NEG) Urine Nitrite Negative (NEG) Urine Bilirubin Negative (NEG) Urine Urobilinogen Dipstick 1.0 mg/dL (0.2 mg/dL) Urine Leukocyte Esterase Moderate (NEG) Urine RBC 0 /HPF (0-2) Urine WBC 5-10 /HPF (0-4) Urine Squamous Epithelial Cells Few /LPF Urine Bacteria 0 /HPF (0-FEW) Sodium Level 144 mmol/L (136-145) Potassium Level 3.6 mmol/L (3.5-5.1) Chloride Level 105 mmol/L (98-107) Carbon Dioxide Level 30 mmol/L (21-32) Anion Gap 9 (6-14) Blood Urea Nitrogen 16 mg/dL (7-20) Creatinine 0.9 mg/dL (0.6-1.0) Estimated GFR (Cockcroft-Gault) 76.0 Glucose Level 117 mg/dL (70-99) Calcium Level 8.9 mg/dL (8.5-10.1) Magnesium Level 1.8 mg/dL (1.8-2.4) Review of Systems Review of Systems: No co changes in vision No co unintentional weight loss Assessment and Plan Assessmemt and Plan Problems Medical Problems: (1) CHF exacerbation Status: Acute (2) GERD (gastroesophageal reflux disease) Status: Chronic (3) Hypertensive urgency Status: Acute (4) Microcytic anemia Status: Chronic Assessment Diastolic CHF COPD HTN GERD Microcytic Anemia Mild coagulopathy Paroxysmal supraventricular tachycardia Plan Cardiac monitoring Diuresis Serial enzymes and EKGs Smoking cessation PT/OT DVT prophylaxis Home meds Full Code Appreciate cardio input Comment Review of Relevant I have reviewed the following items sav (where applicable) has been applied. Medications: Current Medications Medications (Trade) Dose Ordered Sig/Enzo Route PRN Reason Start Time Stop Time Status Last Admin Dose Admin Furosemide (Lasix) 40 mg DAILY IVP 10/27/18 09:00 10/27/18 11:16 DC 10/27/18 07:59 Hydralazine HCl (Apresoline Inj) 10 mg PRN Q4HRS PRN IVP ELEVATED BP, SEE COMMENTS 10/26/18 15:15 10/26/18 23:07 Losartan Potassium (Cozaar) 100 mg DAILY PO 10/27/18 09:00 10/27/18 08:10 Potassium Chloride (Klor-Con) 20 meq 1X ONCE PO 10/27/18 08:00 10/27/18 08:01 DC 10/27/18 08:10 Hydralazine HCl (Apresoline Inj) 10 mg 1X ONCE IVP 10/27/18 08:00 10/27/18 08:01 DC 10/27/18 08:10 Metoprolol Tartrate (Lopressor) 50 mg BID PO 10/27/18 12:00 10/27/18 12:07 Aspirin (Ecotrin) 81 mg DAILYWBKFT PO 10/27/18 12:00 10/27/18 12:07 MELANY CHAN III DO Oct 27, 2018 13:35
[2018-10-27] MEDS: GABAPENTIN 300 MG CAPSULE. PO SCH (20:55)
[2018-10-27] MEDS: traZODone 50 MG TABLET. PO SCH (20:56)
[2018-10-27] MEDS: hydrALAZINE 20 MG/ML VIAL. IVP PRN (22:50)
[2018-10-28 03:00] VITALS: BP 135/62
[2018-10-28 07:00] VITALS: BP 145/75
[2018-10-28] MEDS: FLUoxetine HCL 20 MG CAPSULE PO SCH (09:00)
[2018-10-28] MEDS ORDERED: CHLORTHALIDONE 25 MG TABLET. PO SCH (09:00)
[2018-10-28] MEDS: PANTOPRAZOLE 40 MG TABLET.DR. PO SCH (09:00)
[2018-10-28] MEDS: ASPIRIN ENTERIC COATED 81 MG TABLET.DR. PO SCH (09:00)
[2018-10-28] MEDS: LOSARTAN POTASSIUM 50 MG TABLET. PO SCH (09:01)
[2018-10-28] MEDS: CYCLOBENZAPRINE 10 MG TABLET. PO SCH (09:01)
[2018-10-28] MEDS: METOPROLOL TART IMMED RELEASE 25 MG TABLET. PO SCH (09:01)
[2018-10-28] MEDS: ACETAMINOPHEN 500 MG TABLET PO SCH (09:01)
[2018-10-28 09:27] LABS: BASO % 1 % (0-3); EOS # 0.2 x10^3/uL (0.0-0.7); EOS % 5 % (0-3); HEMOGLOBIN 9.5 g/dL (12.0-15.5); LYMPH # 0.7 x10^3/uL (1.0-4.8); LYMPH % 18 % (24-48); MEAN CORPUSCULAR HEMOGLOBIN 20 pg (25-35); MEAN CORPUSCULAR HGB CONC 31 g/dL (31-37); MEAN CORPUSCULAR VOLUME 67 fL (79-100); MONO # 0.5 x10^3/uL (0.0-1.1); MONO % 12 % (0-9); NEUT # 2.5 x10^3/uL (1.8-7.7); NEUT % 64 % (31-73); PLATELET COUNT 288 x10^3/uL (140-400); RED BLOOD COUNT 4.64 x10^6/uL (3.50-5.40); RED CELL DISTRIBUTION WIDTH 20.7 % (11.5-14.5)
[2018-10-28 09:35] LABS: CALCIUM 9.4 mg/dL (8.5-10.1); CREATININE 0.7 mg/dL (0.6-1.0); GFR 101.6; POTASSIUM 4.2 mmol/L (3.5-5.1)
--- NOTE | 2018-10-28 09:58 | PDOC ---
[employer] [facility] PROGRESS NOTE Chief Complaint Chief Complaint Diastolic CHF COPD HTN GERD Microcytic Anemia Mild coagulopathy Paroxysmal supraventricular tachycardia History of Present Illness History of Present Illness 10/28/18 Pt seen and examined at bedside in [facility] Chart reviewed FARA RN 10/27/18 Pt seen and examined lying in bed in [facility] FARA RN Chart reviewed Vitals/I&O Vitals/I&O: Vital Signs Date Time Temp Pulse Resp B/P (MAP) Pulse Ox O2 Delivery O2 Flow Rate FiO2 10/28/18 09:05 79 145/75 10/28/18 08:08 Room Air 10/28/18 07:00 99.2 18 91 99.2 10/28/18 03:00 2.0 I & O 10/27/18 10/27/18 10/28/18 14:59 22:59 06:59 Intake Total 840 ml 240 ml 800 ml Output Total 600 ml 1000 ml Balance 840 ml -360 ml -200 ml Physical Exam General: Alert, Oriented X3, Cooperative, No acute distress Heart: Regular rate (Sr), Other (distant heart sounds) Lungs: Clear Abdomen: Normal bowel sounds (very obese), Soft Extremities: No clubbing, No cyanosis (E pitting edema), No tenderness/swelling Skin: No rashes, Other (hyperpigmentation of skin on neck; hirsutism) Labs Labs: Laboratory Tests Test 10/28/18 08:48 White Blood Count 4.0 x10^3/uL (4.0-11.0) Red Blood Count 4.64 x10^6/uL (3.50-5.40) Hemoglobin 9.5 g/dL (12.0-15.5) Hematocrit 31.0 % (36.0-47.0) Mean Corpuscular Volume 67 fL (79-100) Mean Corpuscular Hemoglobin 20 pg (25-35) Mean Corpuscular Hemoglobin Concent 31 g/dL (31-37) Red Cell Distribution Width 20.7 % (11.5-14.5) Platelet Count 288 x10^3/uL (140-400) Neutrophils (%) (Auto) 64 % (31-73) Lymphocytes (%) (Auto) 18 % (24-48) Monocytes (%) (Auto) 12 % (0-9) Eosinophils (%) (Auto) 5 % (0-3) Basophils (%) (Auto) 1 % (0-3) Neutrophils # (Auto) 2.5 x10^3/uL (1.8-7.7) Lymphocytes # (Auto) 0.7 x10^3/uL (1.0-4.8) Monocytes # (Auto) 0.5 x10^3/uL (0.0-1.1) Eosinophils # (Auto) 0.2 x10^3/uL (0.0-0.7) Basophils # (Auto) 0.0 x10^3/uL (0.0-0.2) Sodium Level 140 mmol/L (136-145) Potassium Level 4.2 mmol/L (3.5-5.1) Chloride Level 105 mmol/L (98-107) Carbon Dioxide Level 26 mmol/L (21-32) Anion Gap 9 (6-14) Blood Urea Nitrogen 13 mg/dL (7-20) Creatinine 0.7 mg/dL (0.6-1.0) Estimated GFR (Cockcroft-Gault) 101.6 Glucose Level 116 mg/dL (70-99) Calcium Level 9.4 mg/dL (8.5-10.1) Review of Systems Review of Systems: Denies NIETO Denies vision change Assessment and Plan Assessmemt and Plan Problems Medical Problems: (1) CHF exacerbation Status: Acute (2) COPD (chronic obstructive pulmonary disease) Status: Chronic (3) GERD (gastroesophageal reflux disease) Status: Chronic (4) Hypertensive urgency Status: Acute (5) Microcytic anemia Status: Chronic Assessment Diastolic CHF COPD HTN GERD Microcytic Anemia Mild coagulopathy Paroxysmal supraventricular tachycardia Plan Discharge if okay with cardiology Serial enzymes and EKGs Diuretics Cardiac monitoring Smoking cessation DVT prophylaxis Home meds PT/OT Full Code Appreciate cardio input Comment Review of Relevant I have reviewed the following items sav (where applicable) has been applied. Medications: Current Medications Medications (Trade) Dose Ordered Sig/Enzo Route PRN Reason Start Time Stop Time Status Last Admin Dose Admin Metoprolol Tartrate (Lopressor) 50 mg BID PO 10/27/18 12:00 10/28/18 09:05 Chlorthalidone (Thalitone) 25 mg DAILY PO 10/28/18 09:00 10/28/18 09:05 Aspirin (Ecotrin) 81 mg DAILYWBKFT PO 10/27/18 12:00 10/28/18 09:05 MELANY CHAN III DO Oct 28, 2018 09:58
[2018-10-28 11:00] VITALS: BP 150/74
--- NOTE | 2018-10-28 12:42 | PDOC ---
CARDIO Progress Notes Date and Time Date of Service 10/28/2018 Time of Evaluation 1220 Subjective Subjective: No Chest Pain, No shortness of breath, No Palpitations Vitals Vitals Vital Signs Date Time Temp Pulse Resp B/P (MAP) Pulse Ox O2 Delivery O2 Flow Rate FiO2 10/28/18 11:00 98.6 69 18 150/74 (99) 96 Room Air 98.6 10/28/18 03:00 2.0 Weight Weight [ ] Input and Output Intake and Output Intake and Output 10/28/18 06:59 Intake Total 1880 ml Output Total 1600 ml Balance 280 ml Intake Oral 1880 ml Output Urine Total 1600 ml Laboratory Labs Laboratory Tests Test 10/28/18 08:48 White Blood Count 4.0 x10^3/uL (4.0-11.0) Red Blood Count 4.64 x10^6/uL (3.50-5.40) Hemoglobin 9.5 g/dL (12.0-15.5) Hematocrit 31.0 % (36.0-47.0) Mean Corpuscular Volume 67 fL (79-100) Mean Corpuscular Hemoglobin 20 pg (25-35) Mean Corpuscular Hemoglobin Concent 31 g/dL (31-37) Red Cell Distribution Width 20.7 % (11.5-14.5) Platelet Count 288 x10^3/uL (140-400) Neutrophils (%) (Auto) 64 % (31-73) Lymphocytes (%) (Auto) 18 % (24-48) Monocytes (%) (Auto) 12 % (0-9) Eosinophils (%) (Auto) 5 % (0-3) Basophils (%) (Auto) 1 % (0-3) Neutrophils # (Auto) 2.5 x10^3/uL (1.8-7.7) Lymphocytes # (Auto) 0.7 x10^3/uL (1.0-4.8) Monocytes # (Auto) 0.5 x10^3/uL (0.0-1.1) Eosinophils # (Auto) 0.2 x10^3/uL (0.0-0.7) Basophils # (Auto) 0.0 x10^3/uL (0.0-0.2) Sodium Level 140 mmol/L (136-145) Potassium Level 4.2 mmol/L (3.5-5.1) Chloride Level 105 mmol/L (98-107) Carbon Dioxide Level 26 mmol/L (21-32) Anion Gap 9 (6-14) Blood Urea Nitrogen 13 mg/dL (7-20) Creatinine 0.7 mg/dL (0.6-1.0) Estimated GFR (Cockcroft-Gault) 101.6 Glucose Level 116 mg/dL (70-99) Calcium Level 9.4 mg/dL (8.5-10.1) Microbiology Micro Microbiology 10/25/18 Blood Culture - Preliminary, Resulted NO GROWTH AFTER 2 DAYS Physical Exam HEENT: Neck Supple W Full Motion Chest: Symmetric LUNGS: Other (diminished) Heart: S1S2, RRR (SR) Abdomen: Soft N/T, Other (obese) Extremities: No Calf Tenderness, Other (1+ bilateral LE pitting edema) Neurology: alert, oriented, follow commands Assessment Assessment 1. Acute on chronic diastolic CHF: compensated 2. AECOPD with continued tobaccoism; defer to PCP 3. Hypertensive heart disease: BP much better with addition of chlorthalidone 4. Microcytic anemia: LEIDA. no known active bleed. defer to PCP 5. Mild coagulopathy 6. HLP 7. PSVT: none further Recommendations 1. Continue losartan and will start on chlorthalidone and metoprolol. 2. Smoking cessation. Continue KHUSHI hose 3. Outpt JAY workup pending 4. Discussed HBPM bid for 1 week diary and to call if outside parameters. If BP continues to trend up then will consider adding norvasc. 5. Follow up in office in 1 month 6. If any symptoms of palpitations then would consider for outpt event monitor. CHASE CRAWFORD APRN Oct 28, 2018 12:42
[2018-10-28] MEDS ORDERED: LOSA100T14 PO (12:50)
[2018-10-28] MEDS ORDERED: CHLO25TA10 PO (12:50)
[2018-10-28] MEDS ORDERED: METO50TA6 PO (12:52)
[2018-10-28 14:40] VITALS: BP 159/88
[2018-10-28 15:06] VITALS: BP 138/72
--- NOTE | 2018-10-28 17:44 | NUR ---
Discharge Note: FARIDEH OVERTON VIAN Discharge instructions and discharge home medications reviewed with Patient and a copy given. All questions have been answered and understanding verbalized. Follow up appointment information and prescriptions given to patient. The following instructions and handouts were given: Hypertension, Metoprolol tablets, chlorthalidone tablets, congestive heart failure, and cardiac diet Discontinued lines and drains: Peripheral IV intact. Patient discharged to Home or Self Care with Self via Wheelchair
--- NOTE | 2018-10-28 19:00 | DS ---
DATE OF DISCHARGE: 10/28/2018 ADMISSION DIAGNOSIS: Congestive heart failure. DISCHARGE DIAGNOSES: Resolving congestive heart failure, acute on chronic systolic and diastolic heart failure. HOSPITAL COURSE: The patient is a pleasant 67-year-old female who is morbidly obese, presented with heart failure. She was admitted. We diuresed her. We consulted Cardiology, did a full cardiac workup. Today, I saw her and examined her. Her heart tones are normal. Lungs are clear. We plan to discharge to home. DISPOSITION: Home. ACTIVITY: As tolerated. DIET: Low sodium. MEDICATIONS: Please see the MRAD. TOTAL TIME: 34 minutes. CLAIRL Timo CHAN DO DR: BHAVNA/shayy JOB#: [id number] / [id number]
[2018-10-28] MEDS ORDERED: amLODIPine BESYLATE 10 MG TABLET PO SCH (21:00)
== END 2018-10-28 17:40 | disposition home or self-care (01) | DRG 291 ==
LOC: ER 14:32 → 2 NORTH 15:42
PROVIDERS: ADMIT Internal Medicine; ATTEND Internal Medicine
DX: I11.0 Hypertensive heart disease with heart failure (principal); J96.01 Acute respiratory failure with hypoxia; D68.9 Coagulation defect, unspecified; I47.1 Supraventricular tachycardia; J44.1 Chronic obstructive pulmonary disease with (acute) exacerbation; Z68.43 Body mass index [BMI] 50.0-59.9, adult; I50.43 Acute on chronic combined systolic (congestive) and diastolic (congestive) heart failure; D50.9 Iron deficiency anemia, unspecified; E66.01 Morbid (severe) obesity due to excess calories; E78.5 Hyperlipidemia, unspecified; F17.200 Nicotine dependence, unspecified, uncomplicated; F32.9 Major depressive disorder, single episode, unspecified; F41.9 Anxiety disorder, unspecified; G47.00 Insomnia, unspecified; G47.33 Obstructive sleep apnea (adult) (pediatric); I16.0 Hypertensive urgency; K21.9 Gastro-esophageal reflux disease without esophagitis; Z82.49 Family history of ischemic heart disease and other diseases of the circulatory system; Z90.710 Acquired absence of both cervix and uterus; Z93.3 Colostomy status; Z96.659 Presence of unspecified artificial knee joint; G89.29 Other chronic pain; E66.9 Obesity, unspecified; M19.90 Unspecified osteoarthritis, unspecified site; D64.9 Anemia, unspecified; Z60.2 Problems related to living alone
CPT/HCPCS: 36415; 36600; 71046; 71250; 80048; 80053; 80061; 81001; 82805; 83540; 83550; 83605; 83735; 83880; 84443; 84484; 85025; 87040; 93005; 93306; 94640; J0360; J1940; J7613; 99285-25; G0378

== ENCOUNTER → 2018-11-10 | Outpatient (CLI) | payer OTHER, MEDICAID ==
[2018-10-28 15:06] VITALS: BP 138/72
[~2018-11-10] MED LIST changes: +BACL10TA PO; +CHLO25TA10 PO; +FURO-69 PO; +GABA300C18 PO; +LOSA100T14 PO; +LOSA1TAB19 PO; +METO50TA6 PO; +ZOLPIDEM 5 MG TABLET. PO ONE
--- NOTE | 2018-11-11 13:10 | SLEEP ---
DATE OF STUDY: 11/10/2018 SLEEP STUDY REFERRING PHYSICIAN: Dr. Rimma Alas Natalia is 67 years old who weighs 330 pounds with a BMI of 53. The patient's Malmo score was 12. The patient had sleep study 10 years ago and was positive for JAY and had put on 50 pounds since the last study and also needs a new machine. A split night study was performed at [facility]. During the night study, the patient spent 427 minutes in bed and slept for 366 minutes with a sleep efficiency of 86%. Sleep latency was 24 minutes with a REM latency of 264 minutes. Sleep architecture showed normal stage 1 sleep, increased stage 2 sleep, absent slow wave, and reduced REM sleep. During the initial diagnostic portion of the study, the patient slept for 71 minutes. During that time, the patient had 11 obstructive apneas, 8 mixed apneas, no central apneas, and 65 hypopneas. The patient's AHI during the diagnostic portion was 72 per hour. Supine or REM sleep was not seen. EKG monitoring revealed normal sinus rhythm, average heart rate 80 beats per minute, and no arrhythmias observed. Nocturnal oximetry study revealed a mean oxygen saturation of 88% with lowest of 77%. 73% of time oxygen saturation remained between 80% and 89%. PLMS were not seen. The patient met the criteria for CPAP initiation. It was started at 5 cm of water and titrated up to 20 cm of water. At the final pressure, the patient slept for 162 minutes. The patient's AHI was reduced to 7 per hour. Oxygen saturations remained above 88% with few spot desaturation in the mid 80s. The patient used a large size full face mask. IMPRESSION: 1. Severe sleep apnea-hypopnea syndrome at an AHI of 72 per hour. 2. Nocturnal hypoxia secondary to obstructive sleep apnea and resolved with CPAP. 3. No clinically significant periodic limb movements. RECOMMENDATIONS: 1. CPAP at 20 cm of water resulted in significant improvement in the patient's sleep apnea and AHI was down to 7 per hour. 2. Follow up in 4-6 weeks to assess compliance with CPAP and to document clinical improvement. 3. Weight loss is strongly advised. 4. Avoid [employer] depressants. 5. Cautioned regarding driving until symptoms of sleep apnea resolve with the use of CPAP. 6. I would recommend having a download data review in the next 30-60 days to make sure AHI is less than 5 per hour. CHUY RIZO MD DR: YESSI/shayy JOB#: [id number] / [id number] RIMMA Cabrera
== END | disposition home or self-care (01) ==
LOC: SLPLAB 18:59
PROVIDERS: ATTEND Physician Assistant Medical
DX: G47.33 Obstructive sleep apnea (adult) (pediatric) (principal); G47.34 Idiopathic sleep related nonobstructive alveolar hypoventilation
CPT/HCPCS: 95810

== ENCOUNTER → 2019-01-10 | Day surgery (SDC) | payer OTHER, MEDICAID ==
[~2019-01-10] MED LIST changes: +FURO20TA3 PO; +IV RINGERS,LACTATED 1000ML 1,000 ML IV ONE; +LIDOCAINE 2% PF 5 ML VIAL. ONE; +MELO15TA23 PO; +PROPOFOL 20 ML IV ONE; -ZOLPIDEM 5 MG TABLET. PO ONE
--- NOTE | 2019-01-10 15:18 | PDOC4 ---
PROCEDURE Procedure EGD with biopsies Indication: LEIDA. H/o negative colonoscopy, timing unclear. Meds: per anesthesia Findings: E--Healed reflux at 40cm. G--Prepyloric deformity. Antral and fundus biopsies re; H.pylori. D--Normal to second portion; biopsies re: atrophy. Ghislaine. well. IMP: Healed reflux. Prepyloric deformity; prior ulcer? REC: Await biopsies. Resume home meds, diet. F/u with me in 2 weeks. If no clue from biopsies re; the LEIDA, consider colonoscopy. DOMINGA ECRRATO MD Jan 10, 2019 15:18
[2019-01-10 15:35] VITALS: BP 142/84
--- NOTE | 2019-01-12 15:07 | PATHOLOGY ---
[facility] Accession Number: [id number] . 01 Material submitted: . PART A: duodenum - DUODENAL BIOPSY PART B: stomach - ANTRAL BIOPSY PART C: stomach - FUNDUS BIOPSY. Modifiers: fundus . 01 Clinical history: . Anemia . 02 Diagnosis: A. Duodenal biopsy: - No significant pathologic abnormalities. . B. Gastric biopsy, antrum: - Mild superficial chronic inflammation. . C. Gastric biopsy, fundus: - Mild superficial chronic inflammation. (JPM:[facility] 01/12/2019) [facility] 01/12/2019 1008 Local . 02 Comment: Sections of the duodenal biopsy reveal segments of duodenal mucosa. Where best oriented, the mucosal villi show no sprue-like changes or significant inflammatory changes. . Sections of the gastric antral biopsy reveal gastric antral/body transition mucosa showing superficial congestion and mild chronic inflammation. A properly controlled immunoperoxidase stain for Helicobacter is negative for Helicobacter organisms. . Sections of the gastric fundus biopsy reveal gastric body mucosa showing superficial mild chronic inflammation. A properly controlled immunoperoxidase stain for Helicobacter is negative for Helicobacter organisms. (JPM:[facility] 01/12/2019) . Special stain performed: Immunoperoxidase for Helicobacter on B1 and C1. . 02 Electronically signed: . Donald Crockett MD, Pathologist NPI- [id number] . 01 Gross description: . A. Received in formalin labeled "Natalia Ariza, duodenal BX," are 2 segments of ham soft tissue measuring 0.9 x 0.3 x 0.3 cm in aggregate dimensions and ranging from 0.4 to 0.5 cm in maximum dimension. The specimen is submitted entirely in cassette A1. . B. Received in formalin labeled "Natalia Ariza, antral BX," is a single segment of ham soft tissue measuring 0.8 cm in maximum dimension. The specimen is entirely submitted in cassette B1. . C. Received in formalin labeled "Ariza, Natalia, fundus BX," are 2 segments of ham soft tissue measuring 1.0 x 0.3 x 0.3 cm in aggregate dimensions and ranging from 0.4 to 0.6 cm in maximum dimension. The specimen is submitted entirely in cassette C1. (TSD; 01/11/2019) TOB/TOB 01/11/2019 1947 Local . 02 Pathologist provided ICD-10: K29.50, D64.9 . 02 CPT . 378396, 259337, 743467, [id number] Specimen Comment: A courtesy copy of this report has been sent to [phone], [phone] Specimen Comment: [id number] Specimen Comment: Report sent to ,DR AGUILA Performed at: 01 [facility] [address], [place] [id number] MD Jadon Landon MD Phone: [phone] Performed at: 02 [facility] [address] [place], [place] [id number] MD Donald Crockett MD Phone: [phone]
== END ==
LOC: SURG 13:12
PROVIDERS: ATTEND Internal Medicine Gastroenterology
DX: D50.9 Iron deficiency anemia, unspecified (principal); K29.50 Unspecified chronic gastritis without bleeding; K44.9 Diaphragmatic hernia without obstruction or gangrene; K21.0 Gastro-esophageal reflux disease with esophagitis
CPT/HCPCS: 43239; 88305; 88342; J2001; J2704